=== PATIENT | female | born 1975 | race Two or more races ===

== ENCOUNTER 2021-01-28 19:39 | Emergency (ER) | payer MEDICAID ==
[~2021-01-28] VITALS: Ht 154.9 cm; Wt 70.3 kg
--- NOTE | 2021-01-28 20:06 | NUR ---
PT BIBSELF C/O LOWER ABD PAIN AND VAGINAL BLEEDING. PT AAOX4 BREATHING EVENLY AND UNLABORED. PER PT, SHE HAS NOT HAD A REGULAR MENSTRUAL CYCLE FOR THE YEAR, ONLY HAVING 2 PERIODS THIS YEAR. PT ATTACHED TO MONITOR AND POX. PT GIVEN BLANKET AND CALL LIGHT WITHIN REACH
--- NOTE | 2021-01-28 20:22 | NUR ---
URINE COLLECTED AND SENT TO LAB
--- NOTE | 2021-01-28 20:27 | NUR ---
us at bedside
[2021-01-28 20:29] LABS: BASOPHILS # (AUTO) 0.1 K/uL (0.0-0.2); BASOPHILS % (AUTO) 0.9 % (0.0-2.0); EOSINOPHILS % (AUTO) 1.5 % (0.0-6.0); HEMATOCRIT 37 % (33-45); HEMOGLOBIN 12.4 g/dL (11.5-14.8); LYMPHOCYTES # (AUTO) 1.7 K/uL (0.8-4.8); LYMPHOCYTES % (AUTO) 23.9 % (20.0-44.0); MEAN CORPUSCULAR HGB CONC 34 g/dl (31.0-36.0); MEAN CORPUSCULAR VOLUME 92 fL (82-100); MONOCYTES # (AUTO) 0.6 K/uL (0.1-1.30); MONOCYTES % (AUTO) 8.6 % (2.0-12.0); NEUTROPHILS # (AUTO) 4.7 K/uL (1.8-8.9); NEUTROPHILS % (AUTO) 65.1 % (43.0-81.0); PLATELET COUNT (AUTO) 288 K/uL (150-450); RED BLOOD CELL COUNT(AUTO) 3.96 MIL/uL (4.0-5.2); WHITE BLOOD COUNT (AUTO) 7.3 K/uL (4.3-11.0)
[2021-01-28 20:36] LABS: CALCIUM, SERUM 8.6 mg/dL (8.5-10.1); POTASSIUM 3.3 mmol/L (3.5-5.1)
[2021-01-28 20:37] LABS: BILIRUBIN,URINE MODERATE (NEGATIVE); COLOR,URINE ORANGE (YELLOW); LEUKOCYTE ESTERASE ,URINE Large (NEGATIVE); NITRITE, URINE Positive (NEGATIVE); PH,URINE 5.5 (5.0-8.0); PROTEIN,URINE 100 mg/dl (NEGATIVE); UGLUCOSE 100 MG/DL mg/dL (NEGATIVE)
[2021-01-28 20:38] LABS: BACTERIA,URINE 1+ /HPF (None Seen); SQUAMOUS EPITHELIAL CELL,UR Few /HPF (None Seen)
[2021-01-28] MEDS ORDERED: KETOROLAC TROMETHAMINE INJ 30 MG/ML VIAL ONE (20:58)
[2021-01-28] MEDS ORDERED: KETOROLAC TROMETHAMINE INJ 60 MG/2 ML VIAL IM ONE (21:00)
[2021-01-28] MEDS ORDERED: CIPR-262 PO (21:45)
[2021-01-28] MEDS ORDERED: LIDOCAINE /MPF 1% VIAL 5 ML VIAL ONE (21:58)
[2021-01-28] MEDS ORDERED: CEFTRIAXONE 1 G VIAL ONE (21:58)
[2021-01-28] MEDS ORDERED: CEFTRIAXONE 1 G VIAL IM ONE (22:00)
--- NOTE | 2021-01-28 22:03 | NUR ---
Patient discharged to home in stable condition. Written and verbal after care instructions given. Patient verbalizes understanding of instruction. pT ambulatory with a steady gait
[2021-01-28 22:07] VITALS: BP 125/90
== END 2021-01-28 22:03 | disposition home or self-care (01) ==
LOC: ER 19:47
DX: N12 Tubulo-interstitial nephritis, not specified as acute or chronic (principal)
CPT/HCPCS: 36415; 76856; 80048; 81001; 85025; 85730; 87086; 96372 ×2; 99284; J0696; J1885; J3490

== ENCOUNTER 2021-05-02 19:18 | Emergency (ER) | payer MEDICAID ==
[~2021-05-02] VITALS: Ht 154.9 cm; Wt 72.6 kg
[~2021-05-02 19:18] MED LIST: CIPR-262 PO
--- NOTE | 2021-05-02 20:45 | NUR ---
pt came in c/o abdominal pain and cramps. lmp yesterday and pt c/o sever bleeding and pain.pt a/ox4,connected to monitor.
[2021-05-02 20:59] LABS: BASOPHILS # (AUTO) 0.1 K/uL (0.0-0.2); EOSINOPHILS % (AUTO) 0.9 % (0.0-6.0); HEMATOCRIT 39 % (33-45); HEMOGLOBIN 13.1 g/dL (11.5-14.8); LYMPHOCYTES # (AUTO) 2.5 K/uL (0.8-4.8); LYMPHOCYTES % (AUTO) 26.6 % (20.0-44.0); MEAN CORPUSCULAR HGB CONC 34 g/dl (31.0-36.0); MEAN CORPUSCULAR VOLUME 89 fL (82-100); MONOCYTES # (AUTO) 0.6 K/uL (0.1-1.30); MONOCYTES % (AUTO) 6.3 % (2.0-12.0); NEUTROPHILS % (AUTO) 65.2 % (43.0-81.0); PLATELET COUNT (AUTO) 310 K/uL (150-450); RED BLOOD CELL COUNT(AUTO) 4.43 MIL/uL (4.0-5.2); WHITE BLOOD COUNT (AUTO) 9.2 K/uL (4.3-11.0)
[2021-05-02 21:00] LABS: CREATININE 1.1 mg/dL (0.6-1.3); POTASSIUM 3.8 mmol/L (3.5-5.1)
[2021-05-02] MEDS ORDERED: MORPHINE SULFATE INJ 2 MG/ML DISP.SYRIN SQ ONE (21:00)
[2021-05-02] MEDS ORDERED: MORPHINE SULFATE INJ 2 MG/ML DISP.SYRIN ONE ×2 (21:04→22:15)
[2021-05-02 21:05] LABS: ALBUMIN 3.8 g/dL (3.4-5.0); BILIRUBIN,DIRECT 0.1 mg/dL (0.0-0.2); BILIRUBIN,TOTAL 0.2 mg/dL (0.2-1.0); TOTAL PROTEIN, SERUM 7.6 g/dL (6.4-8.2)
[2021-05-02 21:22] LABS: RBC,URINE TOO NUMEROUS TO COUN /HPF (0-2)
[2021-05-02 21:24] LABS: COLOR,URINE RED (YELLOW)
[2021-05-02 21:25] LABS: BACTERIA,URINE 1+ /HPF (None Seen)
[2021-05-02] MEDS ORDERED: MORPHINE SULFATE INJ 2 MG/ML DISP.SYRIN IV ONE ×2 (21:30→22:00)
[2021-05-02] MEDS ORDERED: IOHEXOL-300 100 ML VIAL IV ONE (21:51)
[2021-05-02] MEDS ORDERED: IV NS 0.9% 250 ML IV ONE (21:53)
[2021-05-02] MEDS ORDERED: CIPR-262 PO (23:14)
[2021-05-02] MEDS ORDERED: PHEN-894 PO (23:16)
[2021-05-02] MEDS ORDERED: NAPR-1009 PO (23:16)
[2021-05-02] MEDS ORDERED: CEFTRIAXONE 1GM BAG (ER ONLY) 50 ML IV ONE (23:30)
[2021-05-02] MEDS ORDERED: CEFTRIAXONE 1GM BAG (ER ONLY) 1 GM/50 ML PIGGYBACK IV ONE (23:30)
--- NOTE | 2021-05-03 00:17 | NUR ---
Patient discharged to home in stable condition. Written and verbal after care instructions given. Patient verbalizes understanding of instruction. RX GIVEN
[2021-05-03 00:18] VITALS: BP 136/68
[2021-05-03] MEDS ORDERED: PHEN-894 PO (16:14)
[2021-05-03] MEDS ORDERED: NAPR-1009 PO (16:14)
[2021-05-03] MEDS ORDERED: CEPH500T PO (16:14)
== END 2021-05-03 00:33 | disposition home or self-care (01) ==
LOC: ER 19:23
DX: N12 Tubulo-interstitial nephritis, not specified as acute or chronic (principal); N39.0 Urinary tract infection, site not specified; N94.6 Dysmenorrhea, unspecified; N92.0 Excessive and frequent menstruation with regular cycle; Z79.899 Other long term (current) drug therapy
CPT/HCPCS: 36415; 74177; 76856; 80048; 80076; 81001; 83690; 84703; 85025; 85730; 96374; 96375; 96376; 99285; J0696; J2270 ×2; J7050; Q9967

== ENCOUNTER 2021-05-03 00:46 | Inpatient (IN) | payer MEDICAID ==
[2021-05-03] VITALS (7 sets, daily range): BP systolic 120–154; BP diastolic 72–90
[~2021-05-03] VITALS: Ht 167.6 cm; Wt 74.4 kg
[~2021-05-03 00:46] MED LIST changes: +NAPR-1009 PO; +PHEN-894 PO
--- NOTE | 2021-05-03 00:53 | NUR ---
20G IV LINE ESTABLISHED AT [facility] ([place]). BLOO DRAWN AND SENT TO LAB.
--- NOTE | 2021-05-03 00:57 | NUR ---
[facility], HAD A WITNESSED SYNCOPAL EPISODE PER . "PATIENT PASSED OUT AND WAS HELPED TO THE FLOOR DID NOT HIT HEAD". PATIENT CHOOSES TO NOT ANSWER ANY QUESTIONS TO HOW SHE IS FEELING, PLACED IN BED 06 ON MONITOR AND POX.
--- NOTE | 2021-05-03 00:59 | NUR ---
ANN DONE AND SENT TO LAB
[2021-05-03] MEDS ORDERED: IV NS 0.9% 1,000 ML BAG IV ONE (01:00)
--- NOTE | 2021-05-03 01:08 | NUR ---
PATIENT TAKEN TO CT.
[2021-05-03 01:17] LABS: BASOPHILS # (AUTO) 0.1 K/uL (0.0-0.2); BASOPHILS % (AUTO) 0.9 % (0.0-2.0); EOSINOPHILS % (AUTO) 1.2 % (0.0-6.0); HEMATOCRIT 39 % (33-45); HEMOGLOBIN 13.1 g/dL (11.5-14.8); LYMPHOCYTES # (AUTO) 3.8 K/uL (0.8-4.8); LYMPHOCYTES % (AUTO) 37.8 % (20.0-44.0); MEAN CORPUSCULAR HGB CONC 33 g/dl (31.0-36.0); MEAN CORPUSCULAR VOLUME 88 fL (82-100); MONOCYTES # (AUTO) 0.6 K/uL (0.1-1.30); MONOCYTES % (AUTO) 6.1 % (2.0-12.0); NEUTROPHILS # (AUTO) 5.5 K/uL (1.8-8.9); PLATELET COUNT (AUTO) 288 K/uL (150-450); RED BLOOD CELL COUNT(AUTO) 4.47 MIL/uL (4.0-5.2); WHITE BLOOD COUNT (AUTO) 10.1 K/uL (4.3-11.0)
[2021-05-03 02:00] LABS: CALCIUM, SERUM 8.7 mg/dL (8.5-10.1); POTASSIUM 3.6 mmol/L (3.5-5.1)
--- NOTE | 2021-05-03 02:30 | NUR ---
ROOM 320-1
[2021-05-03] MEDS ORDERED: Z GUARD REMEDY 4 OZ OINT TP PRN (04:30)
[2021-05-03] MEDS ORDERED: ONDANSETRON HCL/PF 4 MG/2 ML VIAL IVP PRN (04:30)
[2021-05-03] MEDS ORDERED: MAG HYDROX/AL HYDROX/SIMETH 30 ML UDC PO PRN (04:30)
[2021-05-03] MEDS ORDERED: ACETAMINOPHEN 325 MG TABLET PO PRN (04:30)
--- NOTE | 2021-05-03 04:48 | NUR ---
REPORT GIVENT O ALEXUS BOURGEOIS
--- NOTE | 2021-05-03 04:50 | NUR ---
MRSA SWAB COLLECTED AND SENT TO LAB. PATIENT'S BELONGINGS LIST DONE.
--- NOTE | 2021-05-03 04:53 | NUR ---
PATIENT BEING TRANSFERRED VIA ACLS.
--- NOTE | 2021-05-03 05:00 | NUR ---
CHILD CARE DIRECTORLIBERAL ARTS TEACHER NOTE PT TRANSPORTED VIA GURNEY TO UNIT AT THIS TIME. PT FROM HOME ADMITTED TO TELE FROM ER FOR ADMITTING DX OF SYNCOPE AND UTI. PT IS ABLE TO OPEN EYES, RESPONSIVE TO LIGHT STIMULUS. NO SOB OR S/S OF RESPIRATORY DISTRESS. ON EXTERNAL LEAD MASON TENDER. SKIN IS INTACT. IV ACCESS R AC 18 GAUGE SL, INTACT AND PATENT. ORIENTED TO STAFF, UNIT, AND ROOM. ALL BELONGINGS ACCOUNTED FOR AND BELONGINGS LIST SIGNED. SAFETY PRECAUTIONS IN PLACE. BED IN LOWEST LOCKED POSITION, HOB ELEVATED, SIDE RAILS UP X2, AND CALL LIGHT AND TABLE WITHIN REACH. WILL CONTINUE WITH PLAN OF CARE.
--- NOTE | 2021-05-03 05:01 | NUR ---
TRANSFERRED TO THIRD FLOOR UNDER ACLS
[2021-05-03] MEDS ORDERED: CEFTRIAXONE 1 G VIAL ONE (05:07)
[2021-05-03] MEDS: CEFTRIAXONE 1 G in IV D5W 50 ML IV SCH (05:21)
--- NOTE | 2021-05-03 06:45 | NUR ---
FIRER LOW PRESSURE CLOSING NOTE PT IN BED AWAKE. A/O X4 AND PALAUAN SPEAKING. NO SOB OR S/S OF RESPIRATORY DISTRESS. ON EXTERNAL FLORICULTURE TEACHER. IV ACCESS R AC 18 GAUGE SL, INTACT AND PATENT. ALL NEEDS MET AT THIS TIME. SAFETY PRECAUTIONS IN PLACE AT ALL TIMES. BED IN LOWEST LOCKED POSITION, HOB ELEVATED, SIDE RAILS UP X2, AND CALL LIGHT AND TABLE WITHIN REACH. WILL ENDORSE TO ONCOMING NURSE FOR HUSAM.
--- NOTE | 2021-05-03 07:34 | NUR ---
OUTREACH TEAM MEMBER OPENING NOTE PATIENT IS IN BED WITH EYES CLOSED, EASY TO AROUSE. A/O X3-4. NO S/SX OF ACUTE DISTRESS NOTED. NO SOB. BREATHING IS EVEN AND UNLABORED, TOLERATING WELL ON ROOM AIR. NO C/O PAIN AT THIS TIME. PT WITH EXTERNAL FRENCH PROFESSOR WITH READING OF SINUS RHYTHM. IV ACCESS RAC#18 PATENT AND INTACT, FLUSHING WELL. SAFETY MEASURES IN PLACE WITH BED LOCKED AT LOWEST POSITION AND SIDE RAILS UP X2. CALL LIGHT IS WITHIN REACH. WILL CONTINUE TO MONITOR PATIENT THROUGHOUT SHIFT.
[2021-05-03] MEDS: PANTOPRAZOLE 40 MG TABLET.DR PO SCH (08:32)
[2021-05-03] MEDS ORDERED: PHENAZOPYRIDINE HCL 200 MG TABLET PO PRN (12:30)
--- NOTE | 2021-05-03 12:42 | NUR ---
RN NOTE ORTHOSTATIC BP OBTAINED PER DR. HILL ORDERS: SUPINE-120/89 HR 89 SITTING- 145/90 HR 80 STANDING- 120/[address] HILL MADE AWARE WITH NEW ORDER FOR NS 0.9% 1000ML BOLUS; ORDERS READ BACK AND CARRIED OUT.
[2021-05-03] MEDS: IV NS 0.9% 1,000 ML IV PRN ×2 (12:45→23:54)
[2021-05-03] MEDS ORDERED: IV NS 0.9% 1,000 ML IV ONE (13:00)
[2021-05-03] MEDS: HYDROCODONE/APAP 5/325MG TABLET PO PRN (16:04)
[2021-05-03] MEDS ORDERED: CEPH500T PO (16:14)
[2021-05-03] MEDS ORDERED: PHEN-894 PO (16:14)
[2021-05-03] MEDS ORDERED: NAPR-1009 PO (16:14)
[2021-05-03 16:26] LABS: BASOPHILS % (AUTO) 0.8 % (0.0-2.0); EOSINOPHILS % (AUTO) 0.8 % (0.0-6.0); HEMATOCRIT 34 % (33-45); HEMOGLOBIN 11.5 g/dL (11.5-14.8); LYMPHOCYTES # (AUTO) 1.8 K/uL (0.8-4.8); LYMPHOCYTES % (AUTO) 31.4 % (20.0-44.0); MEAN CORPUSCULAR HGB CONC 34 g/dl (31.0-36.0); MEAN CORPUSCULAR VOLUME 89 fL (82-100); MONOCYTES # (AUTO) 0.4 K/uL (0.1-1.30); MONOCYTES % (AUTO) 6.4 % (2.0-12.0); NEUTROPHILS # (AUTO) 3.5 K/uL (1.8-8.9); NEUTROPHILS % (AUTO) 60.6 % (43.0-81.0); PLATELET COUNT (AUTO) 263 K/uL (150-450); RED BLOOD CELL COUNT(AUTO) 3.87 MIL/uL (4.0-5.2); WHITE BLOOD COUNT (AUTO) 5.8 K/uL (4.3-11.0)
--- NOTE | 2021-05-03 18:50 | NUR ---
GAS CONTROLLER CLOSING NOTE PATIENT AWAKE IN BED WITH FAMILY AT BEDSIDE. NO S/SX OF ACUTE DISTRESS NOTED. NO SOB. BREATHING IS EVEN AND UNLABORED, TOLERATING WELL ON ROOM AIR. PT WITH EXTERNAL RIGHT OF WAY MAN WITH READING OF SINUS RHYTHM . IV ACCESS YUMI MIDLINE PATENT AND INTACT WITH 1/2 NS RUNNING @125MLS/HR. SAFETY MEASURES MAINTAINED. ALL NEEDS MET THROUGHOUT SHIFT. WOUND TX DONE. CALL LIGHT IS WITHIN REACH. WILL ENDORSE CONTINUITY OF CARE TO ONCOMING SHIFT.
--- NOTE | 2021-05-03 19:30 | NUR ---
RN OPENING NOTE PATIENT IN BED, A/O X 4, MOSTLY CAMBODIAN SPEAKING BUT UNDERSTANDS MONGOLIAN. PATIENT DOES NOT REPORT ANY PAIN AT THIS TIME. FAMILY AT BEDSIDE. PATIENT NOT IN ANY APPARENT DISTRESS. PATIENT STILL HAS VAGINAL BLEEDING PRESENT. CURRENTLY ON RA, TOLERATING WELL. SAFETY MEASURES IN PLACE: BED LOCKED AND IN LOWEST POSITION, CALL LIGHT WITHIN REACH, SIDE RAILS UP. WILL MONITOR PATIETN CLOSELY.
--- NOTE | 2021-05-03 20:25 | NUR ---
RN NOTE RN CALLED TO THE ROOM BY DTR, PATIENT FOUND HYPERVENTILATING, PALE, AND DTR STATES SHE COULDN'T BREATH. PATIENT ALSO UNABLE TO TALK AND DTR STATES THAT HER BODY FEELS RIGID. PATIENT EXTREMELY ANXIOUS D/T HER SITUATION. EDUCATED PATIENT ON NON PHARMACOLOGIC METHODS TO CONTROL HER ANXIETY LIKE DISTRACTIONS. PATIENT HR 96 BPM, O2 SAT 98% ON RA, BP 154/104. PATIENT PUT ON 2LPM NC FOR COMFORT, PATIENT HAD CALMED DOWN SLIGHTLY AFTER SOME TIME. MD YASMINE KENDALL NOTIFIED AND ORDERED XANAX TO HELP HER CALM DOWN. BP NOW DOWN TO 150/78.
[2021-05-03] MEDS ORDERED: ALPRAZOLAM 0.25 MG TABLET PO PRN (21:00)
--- NOTE | 2021-05-03 21:01 | NUR ---
RN NOTE XANAX GIVEN TO HELP KEEP HER CALM AND PYRIDIUM FOR URINARY PAIN. WILL MONITOR MED EFFECTIVENESS AT A LATER TIME
[2021-05-04] VITALS: BP 132/77
[2021-05-04] MEDS: IV NS 0.9% 1,000 ML IV PRN ×2 (00:05→06:13)
[2021-05-04 04:00] VITALS: BP 126/85
[2021-05-04] MEDS: CEFTRIAXONE 1 G in IV D5W 50 ML IV SCH (04:24)
[2021-05-04] MEDS: HYDROCODONE/APAP 5/325MG TABLET PO PRN ×2 (04:30→11:50)
--- NOTE | 2021-05-04 04:36 | NUR ---
norco 5-325 given for pain on lower abd area
--- NOTE | 2021-05-04 06:31 | NUR ---
RN CLOSING NOTE PATIENT IN BED, A/O X 4, AWAKE. MOSTLY PERSIAN SPEAKING BUT UNDERSTANDS RUSSIAN. PATIENT CURRENTLY ON 2 LPM VIA NC, TOLERATING WELL. PATIENT SATTING 100% ON 98-100% ON RA, BUT PATIENT WANTS TO KEEP NC FOR COMFORT. PATIENT DOES NOT REPORT ANY PAIN AT THIS TIME. PAIN MANAGED WITH NORCO. PATIENT NOT IN ANY APPARENT DISTRESS. PATIENT NOTED TO STILL HAVE VAGINAL BLEEDING AND CLOTS. SAFETY MEASURES IN PLACE: BED LOCKED AND IN LOWEST POSITION, CALL LIGHT WITHIN REACH, SIDE RAILS UP. ALL NEEDS MET AND ATTENDED. ALL ORDERS CARRIED OUT. WILL ENDORSE TO DAY SHIFT NURSE FOR HUSAM. Addendum: 05/04/21 at 0634 by MIRTA MCNAMARA RN TELE MONITOR READS SR 76 BPM AT THIS TIME
[2021-05-04 07:01] LABS: BASOPHILS # (AUTO) 0.1 K/uL (0.0-0.2); BASOPHILS % (AUTO) 1.2 % (0.0-2.0); EOSINOPHILS % (AUTO) 2.4 % (0.0-6.0); HEMATOCRIT 34 % (33-45); HEMOGLOBIN 11.5 g/dL (11.5-14.8); LYMPHOCYTES # (AUTO) 2.1 K/uL (0.8-4.8); LYMPHOCYTES % (AUTO) 39.2 % (20.0-44.0); MEAN CORPUSCULAR HGB CONC 34 g/dl (31.0-36.0); MEAN CORPUSCULAR VOLUME 89 fL (82-100); MONOCYTES # (AUTO) 0.3 K/uL (0.1-1.30); MONOCYTES % (AUTO) 5.8 % (2.0-12.0); NEUTROPHILS # (AUTO) 2.8 K/uL (1.8-8.9); NEUTROPHILS % (AUTO) 51.4 % (43.0-81.0); PLATELET COUNT (AUTO) 255 K/uL (150-450); RED BLOOD CELL COUNT(AUTO) 3.82 MIL/uL (4.0-5.2); WHITE BLOOD COUNT (AUTO) 5.4 K/uL (4.3-11.0)
[2021-05-04 07:18] LABS: CALCIUM, SERUM 8.3 mg/dL (8.5-10.1); CREATININE 0.9 mg/dL (0.6-1.3); MAGNESIUM 1.7 mg/dL (1.8-2.4); PHOSPHORUS 3.4 mg/dL (2.5-4.9); POTASSIUM 3.5 mmol/L (3.5-5.1)
--- NOTE | 2021-05-04 07:36 | NUR ---
RN NOTES PATIENT IN BED, A/O X 4, AWAKE AND VERBALLY RESPONSIVE. UZBEK SPEAKING BUT UNDERSTANDS CONGOLESE. ON 2 LPM VIA NC, TOLERATING WELL. NO COMPLAINT OF PAIN AT THIS TIME. SAFETY MEASURES IN PLACE: BED LOCKED AND IN LOWEST POSITION, CALL LIGHT WITHIN REACH, SIDE RAILS UPX2. WILL CONTINUE TO MONITOR.
[2021-05-04] MEDS: PANTOPRAZOLE 40 MG TABLET.DR PO SCH (07:53)
--- NOTE | 2021-05-04 08:41 | NUR ---
RN NOTES PATIENT SEEN BY DR. ESPINOSA AT BEDSIDE.
[2021-05-04 09:18] VITALS: BP 120/82
[2021-05-04] MEDS: Magnesium 1GM/D5W 100ML PREMIX 100 ML IV SCH ×2 (10:31→11:31)
--- NOTE | 2021-05-04 11:40 | NUR ---
RN NOTES MAG IV CURRENTLY INFUSING BAG #2. AT BEDSIDE TO VISIT PATIENT.
[2021-05-04 12:00] VITALS: BP 134/83
--- NOTE | 2021-05-04 12:13 | NUR ---
RN NOTES PATIENT W/ EPISODE OF VOMITING X1 AND NAUSEA X1; ZOFRAN GIVEN INDICATED.
--- NOTE | 2021-05-04 17:02 | NUR ---
RN NOTES IV ZOFRAN EFFECTIVE. FOR DISCHARGE TO HOME TODAY PER DR. ESPINOSA, VERBALIZED UNDERSTANDING BY PATIENT AND AT BEDSIDE. DISCHARGE INSTRUCTIONS AND EDUCATION PROVIDED TO PATIENT AND W/ HUNGARIAN-SPEAKING STAFF AT BEDSIDE TO TRANSLATE FOR PATIENT AND RN. DISCHARGE FORM AND BELONGINGS LIST FORM SIGNED BY PATIENT AND ALL BELONGINGS ACCOUNTED FOR. NO SKIN ISSUE NOTED. NAME ARMBAND AND IV LINES REMOVED. PRESCRIPTION MEDICATIONS ALREADY W/ . RESOURCES FOR OUTSIDE HOSPITAL PROVIDED BY JOSE C, PRIMARY HEALTH CARE NURSE, TO PATIENT AND . PATIENT UNDERSTOOD POST-DISCHARGE FOLLOW-UP W/ HER PRIMARY MD AND OB-SECTION LEADER. PATIENT ACCOMPANIED BY SKEINER VIA WHEELCHAIR AND LEFT W/ VIA PRIVATE CAR. CHARGE NURSE AND MD AWARE OF DISCHARGE.
== END 2021-05-04 17:00 | disposition home or self-care (01) | DRG 463 ==
LOC: ER 00:48 → TELE 02:34
PROVIDERS: ADMIT Nurse Practitioner Acute Care; ATTEND Family Medicine
DX: N39.0 Urinary tract infection, site not specified (principal); N20.0 Calculus of kidney; N93.8 Other specified abnormal uterine and vaginal bleeding; N88.8 Other specified noninflammatory disorders of cervix uteri; R73.9 Hyperglycemia, unspecified; B96.89 Other specified bacterial agents as the cause of diseases classified elsewhere; K59.00 Constipation, unspecified; Z20.822 Contact with and (suspected) exposure to COVID-19; F29 Unspecified psychosis not due to a substance or known physiological condition
CPT/HCPCS: 36415; 70450-TC; 71045-TC; 80048-TC; 80061-TC; 82962-TC; 83735-TC; 84100-TC; 84484-TC; 84702-TC; 85025-TC; 87081-TC; 93307-TC; 93880-TC; C9803; G0378; J0696; J2405; J3475; J7030; J7050; J7060